=== PATIENT | female | born 1970 | race Caucasian/White ===

== ENCOUNTER 2023-03-19 11:01 | Outpatient (CLI) | payer MEDICARE, MEDICAID, SELFPAY ==
--- NOTE | 2023-03-19 11:17 | MR_ITS ---
WS: [id number] MRI LUMBAR SPINE NONCONTRAST TECHNIQUE: Sagittal T1, T2 and STIR imaging. Axial T1 and T2 imaging. CLINICAL INFORMATION: LOW BACK PAIN/OTHER SPONDYLOSIS,LUMBOSACRAL REGION COMPARISON: None. FINDINGS: Counting performed from the craniocervical junction. S1 is lumbarized. No acute compression. Disc space narrowing worse at S1-2. Tiny central protrusion T11-T12. L1-L2: Mild facet arthropathy. Spinal canal and foramen are patent. L2-L3: Mild annular bulging. Moderate facet arthropathy. Spinal canal and foramen are patent. L3-L4: Mild annular bulging. Moderate facet arthropathy. Spinal canal and foramen are patent. L4-L5: Mild annular bulging. Small left foraminal protrusion with mild left foraminal narrowing. Mode rate facet arthropathy. Slight narrowing of the left subarticular recess. L5-S1: Mild disc bulging with mild central canal stenosis. Slight impingement traversing S1 nerve paul ts bilaterally. Moderate right foraminal narrowing. Moderate to advanced right facet arthropathy liga mentum flavum hypertrophy. S1-S2: Disc desiccation with mild disc bulging and endplate ridging. Moderate to advanced facet arthr opathy. Spinal canal and foramen are patent. Bulky partially visualized uterine mass likely fibroid at the uterine fundus measuring 7 x 6.3 cm. Re commend further evaluation with pelvic ultrasound. This is only partially visualized. Visualized pelvic bony structures: Normal. Paravertebral soft tissues: Normal. Mild central canal stenosis on the delivery table feeder imaging at C4-C5 and C5-C6 with slight indentation on the ce rvical cord. This be further evaluated with cervical spine MRI. IMPRESSION: 1. Bulky partially visualized uterine mass likely fibroid at the uterine fundus measuring 7 x 6.3 cm. Recommend further evaluation with pelvic ultrasound. This is only partially visualized. 2. Counting performed from the craniocervical junction. S1 is lumbarized. 3. Mild central canal stenosis on the delivery table feeder imaging at C4-C5 and C5-C6 with slight indentation on th e cervical cord. This be further evaluated with cervical spine MRI. 4. Tiny left foraminal protrusion L4-5 with mild left L4-5 foraminal narrowing. 5. Mild to moderate central canal stenosis L5-S1 with impingement of traversing S1 nerve roots bilat erally. Moderate facet arthropathy with ligamentum flavum hypertrophy worse on the right. Moderate ri ght L5-S1 foraminal narrowing.
== END 2023-03-19 11:02 | disposition home or self-care (01) ==
PROVIDERS: PCP Physician Assistant; Visit Provider Physician Assistant
DX: M47.817 Spondylosis without myelopathy or radiculopathy, lumbosacral region (principal); N85.9 Noninflammatory disorder of uterus, unspecified; M48.02 Spinal stenosis, cervical region; M48.07 Spinal stenosis, lumbosacral region
CPT/HCPCS: 72148